=== PATIENT | male | born 1990 | race African-American/Black ===

== ENCOUNTER 2017-05-01 01:40 | Emergency (ER) | payer SELFPAY ==
[~2017-05-01] VITALS: Ht 180.3 cm; Wt 121.6 kg
[~2017-05-01 01:40] MED LIST: MOTRIN800 MG PO; NOHOMEMEDS
[2017-05-01 03:12] VITALS: BP 134/79
== END 2017-05-01 03:12 | disposition home or self-care (01) ==
LOC: EME 01:40
DX: F10.129 Alcohol abuse with intoxication, unspecified (principal)